=== PATIENT | female | born 1995 | race Caucasian/White ===

== ENCOUNTER → 2016-08-31 | Outpatient (CLI) | payer MEDICAID, OTHER ==
[~2016-08-31] MED LIST: ACET65TA; ALBU0.5N INH; ALBUTEROL INHALER INH; ALIN500T2 PO; AMOX250C PO; CEFD300C; DOXY100C37 PO; IBUP100SUS PO; PRED20TA; REGL10TA6 PO; TYLENOL COLD; XOPE1.252; XOPENEX
[2016-08-31 17:12] LABS: BASO % 0.4 % (0.0-1.0); EOS # 0.2 K/mm3 (0.0-0.50); EOS % 2.2 % (0.0-3.0); LARGE UNSTAINED CELL # 0.1 K/mm3 (0.0-0.4); LARGE UNSTAINED CELL % 1.1 % (0.0-4.0); LYMPH # 1.8 K/mm3 (1.5-6.5); LYMPH % 17.1 % (24.0-44.0); MEAN CORPUSCULAR HEMOGLOBIN 32.6 pg (27.0-33.0); MEAN CORPUSCULAR HGB CONC 34.1 g/dl (32.0-36.5); MEAN CORPUSCULAR VOLUME 95.6 fl (80.0-96.0); MONO # 0.6 K/mm3 (0.0-0.8); MONO % 5.8 % (0.0-5.0); NEUTROPHILS # 7.5 K/mm3 (1.8-7.7); NEUTROPHILS % 73.4 % (36.0-66.0); PLATELET COUNT, AUTOMATED 242 k/mm3 (150-450); RED CELL DISTRIBUTION WIDTH 11.4 % (11.5-14.5); WHITE BLOOD COUNT 10.2 K/mm3 (4.0-10.0)
[2016-08-31 17:24] LABS: HBsAg Prenatal NEGATIVE (NEGATIVE)
== END ==
LOC: M WUC 14:49
PROVIDERS: ATTEND Advanced Practice Midwife
DX: Z34.81 Encounter for supervision of other normal pregnancy, first trimester (principal)

== ENCOUNTER 2016-09-22 21:55 | Emergency (ER) | payer MEDICAID, OTHER ==
[~2016-09-22] VITALS: Ht 154.9 cm; Wt 48.2 kg
[~2016-09-22 21:55] MED LIST changes: -DOXY100C37 PO
[2016-09-22 21:56] VITALS: BP 103/54
[2016-09-22] MEDS ORDERED: DOXY100C37 PO (23:48)
[2016-09-23] MEDS ORDERED: DOXYCYCLINE HYCLATE 100 MG TAB PO ONE
== END 2016-09-22 23:53 | disposition home or self-care (01) ==
LOC: M ED 21:55
DX: Z20.2 Contact with and (suspected) exposure to infections with a predominantly sexual mode of transmission (principal)

== ENCOUNTER → 2016-10-01 | Outpatient (REF) | payer OTHER ==
[~2016-10-01] MED LIST changes: +DOXY100C37 PO
== END ==
LOC: M LAB REF 13:10
PROVIDERS: ATTEND Advanced Practice Midwife
DX: Z34.81 Encounter for supervision of other normal pregnancy, first trimester (principal)

== ENCOUNTER → 2016-10-31 | Outpatient (CLI) | payer OTHER ==
--- NOTE | 2016-10-31 11:31 | REP ---
Clinical: Anatomical evaluation. Comparison: None . Findings: Examination demonstrates a single live intrauterine in breech presentation. motion is identified by technologist. Placenta is noted posteriorly and grade zero without evidence for placenta previa or abruption. Amniotic fluid volume is normal. Cervix measures 3.8 cm in length and appears closed. Nuchal cord cannot be excluded. Gestational age by LMP 19 weeks 0 days with KHRIS 03/27/2017. Gestational age by current measurements the 90 weeks 3-day with K[facility]IS is 03/24/2017 . FHR equals 144 beats per minute. BPD 4.7 cm 20 weeks 1 day HC 16.9 cm 19 weeks 4 days AC 14.7 cm 20 weeks 0 days FL 2.9 cm 19 weeks 0 days HL 2.7 cm 18 weeks 5 days HC/AC ratio 1.15 Estimated weight 299 grams ( 68th percentile). Anatomical assessment demonstrates normal structures including cranium, choroid plexus, cavum, cerebellum/posterior fossa, facial features, lungs, four-chamber heart/ventricular outflow tracts -- echogenic focus in the left cardiac ventricle likely prominent chordae tendineae, diaphragm, stomach, cord insertion/three-vessel cord, kidneys/bladder, spine, and extremities. Impression: Single live intrauterine in cephalic presentation demonstrating appropriate interval growth. 2. Anatomical assessment is essentially normal as described above. 3. Nuchal cord cannot be excluded. Signed by Adam Pinzon MD 10/31/2016 11:22 A
== END ==
LOC: M RAD 10:15
PROVIDERS: ATTEND Advanced Practice Midwife
DX: Z34.82 Encounter for supervision of other normal pregnancy, second trimester (principal); Z3A.19 19 weeks gestation of pregnancy

== ENCOUNTER 2016-12-12 21:23 | Outpatient (CLI) | payer OTHER ==
[~2016-12-12] VITALS: Ht 154.9 cm; Wt 52.0 kg
[2016-12-12 21:39] VITALS: BP 116/62
[2016-12-12 22:13] VITALS: BP 121/65
== END 2016-12-12 22:20 | disposition home or self-care (01) ==
LOC: M LDO 21:23
PROVIDERS: ATTEND Specialist
DX: O36.8120 Decreased fetal movements, second trimester, not applicable or unspecified (principal); Z3A.25 25 weeks gestation of pregnancy

== ENCOUNTER → 2017-03-01 | Outpatient (REF) | payer OTHER | LOC: M LAB REF 16:47 | DX: Z34.83 Encounter for supervision of other normal pregnancy, third trimester (principal); Z3A.00 Weeks of gestation of pregnancy not specified ==

== ENCOUNTER 2017-03-06 12:16 | Outpatient (CLI) | payer OTHER ==
[2017-03-06] MEDS: TERBUTALINE SULFATE 1 MG/ML VIAL (J3105) SC (14:21)
== END 2017-03-06 17:36 | disposition home or self-care (01) ==
LOC: M LDO 12:16
DX: O32.1XX0 Maternal care for breech presentation, not applicable or unspecified (principal); Z3A.37 37 weeks gestation of pregnancy
CPT/HCPCS: J3105

== ENCOUNTER 2017-04-04 13:42 | Inpatient (IN) | payer OTHER ==
[2017-04-04 15:43] LABS: HEMATOCRIT 37.9 % (36.0-47.0); HEMOGLOBIN 12.5 g/dl (12.0-16.0); MEAN CORPUSCULAR HEMOGLOBIN 30.8 pg (27.0-33.0); MEAN CORPUSCULAR VOLUME 93.3 fl (80.0-96.0); PLATELET COUNT, AUTOMATED 191 10^3/uL (150-450); RED BLOOD COUNT 4.06 10^6/uL (4.00-5.40); RED CELL DISTRIBUTION WIDTH 13.2 % (11.5-14.5); WHITE BLOOD COUNT 9.2 10^3/uL (4.0-10.0)
[2017-04-04] MEDS: miSOPROStol 50 MCG 1/2 TAB (S0191) SL ×2 (16:00→20:00)
[2017-04-04] MEDS: LACTATED RINGER'S 1000 ML IV (16:03)
[2017-04-04] MEDS: PENICILLIN G POTASSIUM IV 5 MU in D5W MINI-BAG PLUS 100 ML IV (16:03)
[2017-04-04] MEDS: LR 1,000 ML IV ×2 (16:03→23:19)
[2017-04-04 16:09] LABS: AMPHETAMINES URINE REFLEX NEGATIVE (NEGATIVE); BARBITURATES URINE REFLEX NEGATIVE (NEGATIVE); BENZODIAZEPINES URINE REFLEX NEGATIVE (NEGATIVE); COCAINE METABOLITE URINE REFLE NEGATIVE (NEGATIVE); METHADONE URINE REFLEX NEGATIVE (NEGATIVE); OPIATES URINE REFLEX NEGATIVE (NEGATIVE); PHENCYCLIDINE URINE REFLEX NEGATIVE (NEGATIVE)
[2017-04-04 16:18] LABS: CANNABINOIDS URINE REFLEX POSITIVE (NEGATIVE)
[2017-04-04] MEDS: PENICILLIN G POTASSIUM IV 2.5 MU in APPROPRIATE DILUENT 1 EA IV (20:05)
[2017-04-04] MEDS: BUTORPHANOL 2 MG/ML INJ (J0595) IV (21:31)
[2017-04-04] MEDS: PROMETHAZINE INJ 25 MG/ML VIAL (J2550) IV (21:32)
[2017-04-05] MEDS: PENICILLIN G POTASSIUM IV 2.5 MU in APPROPRIATE DILUENT 1 EA IV ×4 (00:13→12:12)
[2017-04-05] MEDS: miSOPROStol 50 MCG 1/2 TAB (S0191) SL ×4 (04:00→10:49)
[2017-04-05] MEDS ORDERED: FENTANYL 2MCG/ML ROPIVACAINE 0.2% IN 0.9% NACL 200ML IVBAG As Ordered (06:10)
[2017-04-05] MEDS ORDERED: OXYTOCIN 30 UNITS IN 0.9% NaCl 500ML IV BAG (J2590) As Ordered (07:27)
[2017-04-05] MEDS: LR 1,000 ML IV ×2 (08:04→12:12)
[2017-04-05] MEDS ORDERED: EPIDURAL COMMENT XX (12:00)
[2017-04-05] MEDS: FENTANYL/ROPIVACAINE/NACL BAG 200 ML EPIDURAL (12:00)
[2017-04-05] MEDS ORDERED: EPIDURAL/PCA KEYS XX (12:00)
[2017-04-05] MEDS ORDERED: ONDANSETRON 4MG/2ML VIAL (J2405) IV ×2 (12:00→16:30)
[2017-04-05] MEDS ORDERED: LACTATED RINGER'S 1000 ML IV (12:00)
[2017-04-05] MEDS ORDERED: NALOXONE INJ 0.4 MG/1 ML VIAL (J2310) IV (12:00)
[2017-04-05] MEDS ORDERED: REFRIGERATOR IV KEYS XX (12:00)
[2017-04-05] MEDS ORDERED: ePHEDrine INJ 50 MG/ML VIAL IV (12:00)
[2017-04-05] MEDS ORDERED: diphenhydrAMINE INJ 50MG/ML VIAL (J1200) IV (12:00)
[2017-04-05] MEDS: OXYTOCIN DRIP 30 UNITS in APPROPRIATE DILUENT 1 EA IV ×2 (12:13→16:20)
[2017-04-05] MEDS ORDERED: DIBUCAINE 1% OINTMENT 30GM TOP (16:30)
[2017-04-05] MEDS ORDERED: MOM 30ML SUSPENSION UDC PO (16:30)
[2017-04-05] MEDS ORDERED: METHYLERGONOVINE MALEATE 0.2 MG TAB PO (16:30)
[2017-04-05] MEDS ORDERED: ANUSOL HC CREAM 30GM TOP (16:30)
[2017-04-05] MEDS: IBUPROFEN 800 MG TAB PO (18:51)
[2017-04-05] MEDS: DOCUSATE SODIUM 100 MG CAP PO (19:48)
[2017-04-06] MEDS: ACETAMINOPHEN 500 MG TAB PO (05:53)
[2017-04-06] MEDS: PRENATAL VITAMINS CHEWABLE TABLET PO (11:22)
[2017-04-06] MEDS: MEASLES,MUMPS,RUBELLA VACCINE INJ (MMR-II) (90707) SC (14:51)
[2017-04-06 15:23] LABS: FETAL SCREEN PROF. 1 1
[2017-04-06] MEDS: RHOGAM 300 MCG (1500 IU) INJ (J2790) IM (15:40)
[2017-04-06] MEDS: IBUPROFEN 800 MG TAB PO (19:09)
[2017-04-07] MEDS: PRENATAL VITAMINS CHEWABLE TABLET PO (08:41)
[2017-04-07] MEDS: IBUPROFEN 800 MG TAB PO (08:42)
[2017-04-08 00:06] LABS: Cannabinoid Positive (.); GC Carboxy THC 30 ng/mL (Cutoff=10)
== END 2017-04-07 10:49 | disposition home or self-care (01) | DRG 560 ==
LOC: M LDI 13:42 → M OBS 04-05 18:16
PROVIDERS: Obstetrics & Gynecology
PROC: 3E0DXGC Introduction of Other Therapeutic Substance into Mouth and Pharynx, External Approach (ICD-10-PCS; 2017-04-04)
PROC: 10E0XZZ Delivery of Products of Conception, External Approach (ICD-10-PCS; principal; 2017-04-05)
PROC: 30233S1 Transfusion of Nonautologous Globulin into Peripheral Vein, Percutaneous Approach (ICD-10-PCS; 2017-04-06)
DX: O48.0 Post-term pregnancy (principal); O99.824 Streptococcus B carrier state complicating childbirth; Z37.0 Single live birth; Z3A.41 41 weeks gestation of pregnancy; O69.82X0 Labor and delivery complicated by other cord entanglement, without compression, not applicable or unspecified; O77.0 Labor and delivery complicated by meconium in amniotic fluid

== ENCOUNTER → 2017-07-29 | Outpatient (CLI) | payer MEDICAID | LOC: M OUTALCOH 08:10 | DX: Z03.89 Encounter for observation for other suspected diseases and conditions ruled out (principal) ==

== ENCOUNTER 2017-08-05 11:18 | Outpatient (RCR) | payer MEDICAID, SELFPAY | END 2017-08-24 | LOC: M OUTALCOH 08-08 10:00 | DX: F10.10 Alcohol abuse, uncomplicated (principal) | CPT/HCPCS: 90834 ==

== ENCOUNTER 2017-08-29 15:34 | Outpatient (RCR) | payer MEDICAID, SELFPAY | END 2017-09-24 | LOC: M OUTALCOH 15:34 | DX: F10.10 Alcohol abuse, uncomplicated (principal) ==

== ENCOUNTER 2017-10-29 11:13 | Outpatient (RCR) | payer MEDICAID | END 2017-11-24 | LOC: M OUTALCOH 11:13 | DX: F10.10 Alcohol abuse, uncomplicated (principal); F17.200 Nicotine dependence, unspecified, uncomplicated ==

== ENCOUNTER 2017-12-10 11:00 | Outpatient (RCR) | payer MEDICAID | END 2017-12-25 | LOC: M OUTALCOH 11:00 | DX: F10.10 Alcohol abuse, uncomplicated (principal); F17.200 Nicotine dependence, unspecified, uncomplicated ==

== ENCOUNTER 2018-01-13 09:45 | Outpatient (RCR) | payer MEDICAID | END 2018-01-24 | LOC: M OUTALCOH 09:45 | DX: F10.10 Alcohol abuse, uncomplicated (principal); F17.200 Nicotine dependence, unspecified, uncomplicated ==

== ENCOUNTER → 2020-12-13 | Outpatient (CLI) | payer OTHER ==
[~2020-12-13] MED LIST changes: +COLA100C5 PO; +DOXY-443 PO; -DOXY100C37 PO; +IBUP100S44 PO; -IBUP100SUS PO; +MILK120011 PO; +MOTR200T44 PO; +PRENTAB9 PO; +TYLE325T5 PO
[2020-12-13 14:59] LABS: FREE T4 0.95 NG/DL (0.76-1.46); THYROID STIMULATING HORMONE 0.929 uIU/ML (0.358-3.740)
== END ==
LOC: M PLALAB 10:43
PROVIDERS: ATTEND Nurse Practitioner Women's Health
DX: N93.9 Abnormal uterine and vaginal bleeding, unspecified (principal)

== ENCOUNTER → 2021-01-24 | Outpatient (REF) ==
[2021-01-24 14:29] LABS: RSV AMPLIFICATION NEGATIVE (NEGATIVE)
== END ==
LOC: M EMP 13:16
PROVIDERS: ATTEND Family Medicine
DX: Z20.822 Contact with and (suspected) exposure to COVID-19 (principal)

== ENCOUNTER → 2021-01-28 | Outpatient (REF) | LOC: M EMP 09:51 | PROVIDERS: ATTEND Family Medicine | DX: Z20.822 Contact with and (suspected) exposure to COVID-19 (principal) ==

== ENCOUNTER → 2021-06-20 | Outpatient (CLI) | payer OTHER ==
[2021-06-20 15:27] LABS: BASO % 0.4 % (0.0-1.0); EOS # 0.1 10^3/uL (0.0-0.5); EOS % 1.1 % (0.0-3.0); HEMATOCRIT 37.6 % (36.0-47.0); HEMOGLOBIN 12.5 g/dl (12.0-15.5); LYMPH # 2.4 10^3/uL (1.5-5.0); MEAN CORPUSCULAR HEMOGLOBIN 30.2 pg (27.0-33.0); MEAN CORPUSCULAR HGB CONC 33.2 g/dl (32.0-36.5); MEAN CORPUSCULAR VOLUME 90.8 fl (80.0-96.0); MONO # 0.8 10^3/uL (0.0-0.8); MONO % 9.5 % (2.0-8.0); NEUTROPHILS # 5.2 10^3/uL (1.5-8.5); NEUTROPHILS % 60.8 % (36.0-66.0); PLATELET COUNT, AUTOMATED 281 10^3/uL (150-450); RED BLOOD COUNT 4.14 10^6/uL (4.00-5.40); WHITE BLOOD COUNT 8.6 10^3/uL (4.0-10.0)
[2021-06-20 16:41] LABS: HEPATITIS C VIRUS ABY INDEX 0.1 INDEX (<0.8); HIV 1&2 SCREEN CENTAUR NEGATIVE (NEGATIVE)
[2021-06-20 17:03] LABS: GC DNA AMPLIFICATION NEGATIVE (NEGATIVE)
== END ==
LOC: M PLALAB 12:12
PROVIDERS: ATTEND Specialist
DX: Z36.89 Encounter for other specified antenatal screening (principal)

== ENCOUNTER → 2021-08-11 | Outpatient (CLI) | payer OTHER | LOC: M WHC 07:59 | PROVIDERS: ATTEND Obstetrics & Gynecology | DX: O41.8X20 Other specified disorders of amniotic fluid and membranes, second trimester, not applicable or unspecified (principal); Z3A.18 18 weeks gestation of pregnancy ==

== ENCOUNTER → 2021-09-11 | Outpatient (CLI) | payer OTHER | LOC: M WHC 07:42 | PROVIDERS: ATTEND Obstetrics & Gynecology | DX: Z36.2 Encounter for other antenatal screening follow-up (principal); Z3A.23 23 weeks gestation of pregnancy ==

== ENCOUNTER → 2021-09-26 | Outpatient (REF) | payer OTHER | LOC: M LAB REF 16:04 | PROVIDERS: ATTEND Physician Assistant Medical | DX: R05.9 Cough, unspecified (principal); R50.9 Fever, unspecified ==

== ENCOUNTER → 2021-10-04 | Outpatient (CLI) | payer OTHER ==
[2021-10-04 14:21] LABS: HEMATOCRIT 33.1 % (36.0-47.0); HEMOGLOBIN 10.5 g/dl (12.0-15.5); MEAN CORPUSCULAR HGB CONC 31.7 g/dl (32.0-36.5); MEAN CORPUSCULAR VOLUME 94.6 fl (80.0-96.0); PLATELET COUNT, AUTOMATED 258 10^3/uL (150-450); WHITE BLOOD COUNT 8.1 10^3/uL (4.0-10.0)
== END ==
LOC: M PLALAB 10:50
PROVIDERS: ATTEND Obstetrics & Gynecology
DX: Z34.92 Encounter for supervision of normal pregnancy, unspecified, second trimester (principal)

== ENCOUNTER → 2021-10-12 | Outpatient (CLI) | payer OTHER | LOC: M WHC 09:42 | PROVIDERS: ATTEND Obstetrics & Gynecology | DX: O26.842 Uterine size-date discrepancy, second trimester (principal); Z3A.28 28 weeks gestation of pregnancy ==

== ENCOUNTER → 2021-12-07 | Outpatient (REF) | payer OTHER | LOC: M SFHCWAGY 09:59 | PROVIDERS: ATTEND Specialist | DX: Z36.89 Encounter for other specified antenatal screening (principal) ==

== ENCOUNTER 2022-01-05 15:59 | Inpatient (IN) | payer OTHER ==
[2022-01-05] VITALS (29 sets, daily range): BP systolic 85–124; BP diastolic 50–71
[~2022-01-05] VITALS: Ht 154.9 cm; Wt 63.2 kg
[2022-01-05] MEDS ORDERED: PRENTAB9 PO (16:35)
[2022-01-05] MEDS ORDERED: HOME MED LIST COMPLETE! XX SCH (16:40)
[2022-01-05] MEDS ORDERED: TRANEXAMIC ACID INJection 1,000 MG in NS 100 ML IV PRN (16:45)
[2022-01-05] MEDS ORDERED: METHYLERGONOVINE MALEATE 0.2 MG/ML VIAL (J2210) IM PRN (16:45)
[2022-01-05] MEDS ORDERED: CARBOPROST TROMETHAMINE 250 MCG/ML AMP IM PRN (16:45)
[2022-01-05] MEDS ORDERED: miSOPROStol 50MCG 1/2 TABLET PO ONE (16:45)
[2022-01-05] MEDS ORDERED: OXYTOCIN DRIP 30 UNITS in IV 1 EA IV PRN (16:45)
[2022-01-05 17:46] LABS: HEMATOCRIT 31.2 % (36.0-47.0); HEMOGLOBIN 10.2 g/dl (12.0-15.5); MEAN CORPUSCULAR HEMOGLOBIN 29.5 pg (27.0-33.0); MEAN CORPUSCULAR HGB CONC 32.7 g/dl (32.0-36.5); MEAN CORPUSCULAR VOLUME 90.2 fl (80.0-96.0); PLATELET COUNT, AUTOMATED 235 10^3/uL (150-450); RED BLOOD COUNT 3.46 10^6/uL (4.00-5.40); WHITE BLOOD COUNT 8.6 10^3/uL (4.0-10.0)
[2022-01-05] MEDS ORDERED: TERBUTALINE SULFATE 1 MG/ML VIAL (J3105) SC STA (18:11)
[2022-01-05] MEDS ORDERED: LR 1,000 ML IV SCH (19:00)
[2022-01-05] MEDS ORDERED: FENTANYL 2MCG/ML ROPIVACAINE 0.2% IN 0.9% NACL 100ML IVBAG As Ordered ONE (20:55)
[2022-01-05] MEDS ORDERED: OXYTOCIN 30 UNITS IN 0.9% NaCl 500ML IV BAG (J2590) As Ordered ONE (21:43)
[2022-01-05] MEDS ORDERED: OXYTOCIN DRIP 30 UNITS in IV 1 EA IV SCH (23:55)
[2022-01-06] VITALS (27 sets, daily range): BP systolic 84–126; BP diastolic 46–73
[2022-01-06] MEDS ORDERED: METHYLERGONOVINE MALEATE 0.2 MG TAB PO PRN (06:35)
[2022-01-06] MEDS ORDERED: DOCUSATE SODIUM 100MG CAPSULE PO PRN (06:35)
[2022-01-06] MEDS ORDERED: DIBUCAINE 1% OINTMENT 30GM TOP PRN (06:35)
[2022-01-06] MEDS ORDERED: RHOGAM 300 MCG (1500 IU) INJ (J2790) IM SCH (06:35)
[2022-01-06] MEDS: PRENATAL VITAMINS CHEWABLE TABLET PO SCH (08:25)
[2022-01-06] MEDS: IBUPROFEN 600MG TAB PO PRN ×2 (08:26→20:32)
[2022-01-06] MEDS: ACETAMINOPHEN 500 MG TAB PO PRN (17:00)
[2022-01-07 05:40] VITALS: BP 110/58
[2022-01-07] MEDS: IBUPROFEN 600MG TAB PO PRN (05:49)
[2022-01-07] MEDS: PRENATAL VITAMINS CHEWABLE TABLET PO SCH (09:54)
[2022-01-07] MEDS: ACETAMINOPHEN 500 MG TAB PO PRN (10:01)
[2022-01-07] MEDS ORDERED: INFLUENZA QUADRIVALENT PF VACCINE 0.5ML SYRINGE IM.IMMUN ONE (11:25)
[2022-01-08] MEDS ORDERED: MEASLES,MUMPS,RUBELLA VACCINE INJ (MMR-II) (90707) SC.IMMUN ONE (09:00)
== END 2022-01-07 12:10 | disposition home or self-care (01) | DRG 560 ==
LOC: M LDI 15:59 → M OBS 01-06 08:58
PROVIDERS: ADMIT Advanced Practice Midwife; ATTEND Advanced Practice Midwife
PROC: 3E0P7GC Introduction of Other Therapeutic Substance into Female Reproductive, Via Natural or Artificial Opening (ICD-10-PCS; 2022-01-05)
PROC: 10E0XZZ Delivery of Products of Conception, External Approach (ICD-10-PCS; principal; 2022-01-06)
DX: O48.0 Post-term pregnancy (principal); O77.0 Labor and delivery complicated by meconium in amniotic fluid; Z3A.40 40 weeks gestation of pregnancy; O69.81X0 Labor and delivery complicated by cord around neck, without compression, not applicable or unspecified; O76 Abnormality in fetal heart rate and rhythm complicating labor and delivery; Z37.0 Single live birth

== ENCOUNTER → 2022-03-28 | Outpatient (REF) | payer OTHER | LOC: M PLALAB 11:33 | PROVIDERS: ATTEND Advanced Practice Midwife | DX: Z12.4 Encounter for screening for malignant neoplasm of cervix (principal); R87.610 Atypical squamous cells of undetermined significance on cytologic smear of cervix (ASC-US) ==

== ENCOUNTER → 2023-08-08 | Outpatient (REF) | payer OTHER ==
[~2023-08-08] MED LIST changes: +DOXY-323 PO; -DOXY-443 PO
[2023-08-08 16:59] LABS: ALBUMIN 4.3 G/DL (3.2-5.2); ALKALINE PHOSPHATASE 68 U/L (46-116); ALT/SGPT 26 U/L (7.0-40); AST/SGOT 12 U/L (<34); BILIRUBIN,TOTAL 0.3 MG/DL (0.3-1.2); BLOOD UREA NITROGEN 12 MG/DL (9-23); CALCIUM LEVEL 8.8 MG/DL (8.5-10.1); CARBON DIOXIDE LEVEL 25 MMOL/L (20-31); CHLORIDE LEVEL 106 MMOL/L (98-107); CHOLESTEROL LEVEL 183 MG/DL (<200); CHOLESTEROL RISK RATIO 3.25 (<5); CREATININE FOR GFR 0.58 MG/DL (0.55-1.30); GLOMERULAR FILTRATION RATE > 60.0 (>60); GLUCOSE, FASTING 84 MG/DL (60-100); HDL CHOLESTEROL 56.3 MG/DL (>40); LDL CHOLESTEROL 104.1 MG/DL (<100); NON-HDL-C 126.7 MG/DL; POTASSIUM SERUM 4.2 MMOL/L (3.5-5.1); SODIUM LEVEL 139 MMOL/L (136-145); TRIGLYCERIDES LEVEL 113 MG/DL (<150)
[2023-08-08 17:02] LABS: THYROID STIMULATING HORMONE 1.221 uIU/ML (0.55-4.78); TOTAL 25(OH) VITAMIN D 29.2 NG/ML (20.0-100.0)
[2023-08-08 17:31] LABS: HIV 1&2 SCREEN NEGATIVE (NEGATIVE)
== END ==
LOC: M LAB REF 16:26
PROVIDERS: ATTEND Family Medicine Addiction Medicine
DX: Z00.00 Encounter for general adult medical examination without abnormal findings (principal); Z68.26 Body mass index [BMI] 26.0-26.9, adult

== ENCOUNTER → 2024-06-02 | Outpatient (REF) | payer OTHER ==
[~2024-06-02] MED LIST changes: -DOXY-323 PO; +DOXY-441 PO
== END ==
LOC: M SFHCWAGY 13:24
PROVIDERS: ATTEND Advanced Practice Midwife
DX: Z12.4 Encounter for screening for malignant neoplasm of cervix (principal)

== ENCOUNTER 2024-09-11 06:15 | Day surgery (SDC) | payer OTHER ==
[~2024-09-11] VITALS: Ht 154.9 cm; Wt 61.2 kg
[~2024-09-11 06:15] MED LIST changes: +LR 1,000 ML IV SCH
[2024-09-11 06:58] LABS: PLATELET COUNT, AUTOMATED 284 10^3/uL (150-450)
[2024-09-11] MEDS ORDERED: HYDROmorphone HCL 2 MG/ML 1 ML VIAL As Ordered ONE (07:07)
[2024-09-11] MEDS ORDERED: MIDAZOLAM INJ 2 MG/2 ML VIAL As Ordered ONE (07:07)
[2024-09-11] MEDS ORDERED: LIDOCAINE 2% 100 MG/5 ML SDV (FOR ANES.) As Ordered ONE (07:08)
[2024-09-11] MEDS ORDERED: SUGAMMADEX SODIUM 500 MG/5 ML VIAL As Ordered ONE (07:08)
[2024-09-11] MEDS ORDERED: ONDANSETRON 4MG 2ML VIAL As Ordered ONE (07:08)
[2024-09-11] MEDS ORDERED: ACETAMINOPHEN 1000MG/100ML IV BAG As Ordered ONE (07:08)
[2024-09-11] MEDS ORDERED: dexAMETHasone 4 MG/ML 1 ML VIAL As Ordered ONE (07:08)
[2024-09-11] MEDS ORDERED: KETOROLAC 30 MG/ML 1 ML VIAL As Ordered ONE (07:08)
[2024-09-11] MEDS ORDERED: ROCURONIUM BROMIDE 50MG/5ML VIAL As Ordered ONE (07:08)
[2024-09-11] MEDS ORDERED: GLYCOPYRROLATE INJ 0.2 MG/ML 2 ML VIAL As Ordered ONE (07:43)
[2024-09-11] MEDS ORDERED: ONDANSETRON 4MG 2ML VIAL IV PRN (08:35)
[2024-09-11 10:12] VITALS: BP 114/67; TEMP 96.3; O2SAT 100
== END 2024-09-11 10:25 | disposition home or self-care (01) ==
LOC: M SDC 06:15
PROVIDERS: ATTEND Obstetrics & Gynecology
DX: Z30.2 Encounter for sterilization (principal); J45.909 Unspecified asthma, uncomplicated; Z87.891 Personal history of nicotine dependence
CPT/HCPCS: 36415; 58661; 81025; 85027; 86850; 86900; 86901; 88302; J0131; J0665; J1100; J1171; J1596; J1885; J2250; J2405; J2765; J3010